=== PATIENT | male | born 2000 | race Caucasian/White ===

== ENCOUNTER → 2023-04-13 | Outpatient (CLI) | payer BC ==
[~2023-04-13] MED LIST: AMX500CIP PO; [UNRECOGNIZED DRUG - CODE] PO
--- NOTE | 2023-04-13 17:44 | Diagnostic Imaging Report ---
PROCEDURE: US Thyroid. TECHNIQUE: Multiple real-time grayscale images were obtained of the thyroid in various projections. INDICATION: Abnormal laboratory values. COMPARISON: None. FINDINGS: Both thyroid lobes demonstrate smooth and homogenous background echotexture. Color flow Doppler demonstrates normal and symmetric vascularity bilaterally. The right lobe measures 4.9 cm in length, 1.8 cm AP, and 1.7 cm transverse. The left lobe measures 4.4 cm in length, 1.4 cm AP, and 1.8 cm transverse. The isthmus measures 0.3 cm. A solid nodule is visualized in the inferior pole of the left lobe of the thyroid demonstrating [id number] internal echogenicity and measuring 0.7 x 0.4 x 0.8 cm. IMPRESSION: 1. Solid nodule in the left lobe of the thyroid measuring up to 0.8 cm. Based on imaging characteristics and size criteria, follow-up in 12 months with thyroid ultrasound is recommended to ensure stability. Dictated by: Dictated on workstation # [id number]
== END ==
LOC: RAD 12:21
PROVIDERS: ATTEND Family Medicine
DX: E04.1 Nontoxic single thyroid nodule (principal); R79.89 Other specified abnormal findings of blood chemistry
CPT/HCPCS: 76536